=== PATIENT | female | born 2000 | race Two or more races ===

== ENCOUNTER 2024-07-09 14:01 | Emergency (ER) | payer SELFPAY ==
[~2024-07-09] VITALS: Ht 165.1 cm; Wt 72.0 kg
[2024-07-09] VITALS (21 sets, daily range): BP systolic 84–127; BP diastolic 39–81
[2024-07-09] MEDS ORDERED: DiphenhydrAMINE HCL 50 MG/ML SDV IV ONE (14:10)
[2024-07-09] MEDS ORDERED: FAMOTIDINE 10MG/ML 2ML SDV IV ONE (14:10)
[2024-07-09] MEDS ORDERED: EPINEPHrine HCL 1 MG/ML AMP IM ONE (14:10)
[2024-07-09] MEDS ORDERED: methylPREDNISolone SODIUM SUCC 125 MG/2 ML SDV IV ONE (14:10)
[2024-07-09 14:40] LABS: BASO% 0.5 % (0-3); EOS% 1.3 % (0-8); HEMATOCRIT 34.2 % (37.0-47.0); HEMOGLOBIN 10.4 g/dl (12.0-16.0); IMMATURE GRANULOCYTES 0.2 % (0.0-5.0); LYMPH% 37.1 % (15-41); MEAN CELL VOLUME 76.2 fL CALC (80.0-100.0); MEAN CORPUSCULAR HGB 23.2 pG CALC (26.0-32.0); MEAN CORPUSCULAR HGB CONC 30.4 g/dL CAL (32.0-36.0); MONO% 6.1 % (2-13); NEUT# 6.62 thou/uL (2.00-7.15); NEUT% 54.8 % (42-76); RED BLOOD COUNT 4.49 mill/uL (4.20-5.60); RED CELL DISTRI WIDTH 15.5 % (11.5-15.5)
[2024-07-09 14:42] LABS: ALBUMIN 4.1 g/dL (3.2-5.0); BILIRUBIN, TOTAL 0.2 mg/dL (0.02-1.3); CREATININE 0.7 mg/dL (0.5-1.0); POTASSIUM 3.4 mmol/l (3.5-5.1); TOTAL PROTEIN 7.7 g/dL (6.3-8.2)
[2024-07-09] MEDS ORDERED: SODIUM CHLORIDE IV ONE (15:59)
[2024-07-09] MEDS ORDERED: STERILE WATER 10 ML/VIAL SDV IJ ONE (15:59)
[2024-07-09] MEDS ORDERED: SODIUM CHLORIDE 0.9% 1,000 ML IV ONE (16:05)
[2024-07-09] MEDS ORDERED: PREDNISONE50 MG PO (17:20)
[2024-07-09] MEDS ORDERED: ALL DAY10 MG PO (17:20)
[2024-07-09] MEDS ORDERED: EPIPEN 2-P0.3 MG/0.3 IM (17:20)
== END 2024-07-09 18:45 | disposition home or self-care (01) | DRG 916 ==
LOC: ED 14:01
PROVIDERS: Family Medicine
DX: T78.2XXA Anaphylactic shock, unspecified, initial encounter (principal)
CPT/HCPCS: J1200